=== PATIENT | male | born 1940 | race Caucasian/White ===

== ENCOUNTER 2020-06-02 17:33 | Inpatient (IN) | payer MEDICARE ==
[2020-06-02] MEDS ORDERED: ALBUTEROL HFA INHALER INHALATION PRN (17:57)
[2020-06-02] MEDS ORDERED: ACETAMINOPHEN TAB 500 MG TAB PO PRN (17:57)
[2020-06-02] MEDS ORDERED: ACETAMINOPHEN TAB 500 MG TAB PO STA (17:57)
[2020-06-02] MEDS ORDERED: ALBUTEROL HFA INHALER INHALATION STA (17:57)
--- NOTE | 2020-06-02 18:07 | ED ---
General Adult HPI - General Chief complaint: Shortness of Breath Stated complaint: COVID+ Time Seen by Provider: 06/02/20 17:54 Source: patient, RN notes reviewed Mode of arrival: ambulatory Limitations: no limitations - History of Present Illness Initial comments: Patient is a pleasant 79-year-old male presenting to emergency Department with cold but positive and difficulty in breathing. Patient has dementia and is a very poor historian. Patient does agree to having fatigue and myalgias and chills. Unclear how long symptoms have occurred 4. Patient is unclear of any history of chronic lung problems. - Related Data Home Medications Medication Instructions Recorded Confirmed Acetaminophen 650 mg RECTAL Q4H PRN 06/02/20 06/02/20 Maurice Antifungal Cream 2% 1 applic TOPICAL BID 06/02/20 06/02/20 Ferrous Sulfate [Iron] 325 mg PO BID@0800,199906/02/20 06/02/20 Metoprolol Tartrate [Lopressor] 50 mg PO BID@0800,199906/02/20 06/02/20 Omeprazole 20 mg PO DAILY@0800 06/02/20 06/02/20 Sertraline HCl [Zoloft] 50 mg PO DAILY@0800 06/02/20 06/02/20 Warfarin Sodium 3 mg PO MOWEFRSA@199906/02/20 06/02/20 Warfarin Sodium 4 mg PO SUTUTH@199906/02/20 06/02/20 bisacodyL [Bisacodyl] 10 mg RECTAL DAILY 06/02/20 06/02/20 Allergies Allergy/AdvReac Type Severity Reaction Status Date / Time No Known Allergies Allergy Verified 06/02/20 18:17 Review of Systems ROS Statement: Those systems with pertinent positive or pertinent negative responses have been documented in the HPI. ROS Other: All systems not noted in ROS Statement are negative. Constitutional: Reports: fever, chills Eyes: Denies: eye pain ENT: Denies: ear pain Respiratory: Reports: cough, dyspnea Cardiovascular: Denies: chest pain Endocrine: Denies: fatigue Gastrointestinal: Denies: abdominal pain Genitourinary: Denies: dysuria Musculoskeletal: Denies: back pain Skin: Denies: rash Neurological: Denies: weakness Past Medical History Past Medical History: Atrial Fibrillation Additional Past Medical History / Comment(s): elevated hr, amemia, bph, leukemia Past Surgical History: Unable to Obtain Past Psychological History: Depression General Exam Limitations: no limitations General appearance: alert, in no apparent distress Head exam: Present: normocephalic Eye exam: Present: normal appearance Neck exam: Present: normal inspection Respiratory exam: Present: decreased breath sounds Cardiovascular Exam: Present: tachycardia GI/Abdominal exam: Present: soft. Absent: tenderness Extremities exam: Present: normal inspection Neurological exam: Present: alert Psychiatric exam: Present: normal affect, normal mood Skin exam: Present: normal color Course Vital Signs 06/02/20 17:48 Temperature 99.6 F Pulse Rate 133 H Respiratory 18 Rate Blood Pressure 136/96 O2 Sat by Pulse 98 Oximetry EKG Findings - EKG Comments: EKG Findings:: plavix tachycardia with a rate of 136. qrs 96. qt 3:30. qtc 496. left axis. poor r-wave progression. incomplete right bundle-branch block. no acute st change. Medical Decision Making - Medical Decision Making Patient reevaluated. Case discussed with Dr. hill, covering for Dr. Birmingham, who admits for Dr. Baldwin. - Lab Data Result diagrams: 06/02/20 18:06 06/02/20 18:06 Lab Results 06/02/20 06/02/20 06/02/20 Range/Units 18:06 18:06 18:06 WBC 11.5 H (3.8-10.6) k/uL RBC 4.97 (4.30-5.90) m/uL Hgb 14.9 (13.0-17.5) gm/dL Hct 46.7 (39.0-53.0) % MCV 94.1 (80.0-100.0) fL MCH 30.1 (25.0-35.0) pg MCHC 32.0 (31.0-37.0) g/dL RDW 18.2 H (11.5-15.5) % Plt Count 131 L (150-450) k/uL MPV 7.1 Anisocytosis Slight PT 23.3 H (9.0-12.0) sec INR 2.4 H (<1.2) APTT 29.5 (22.0-30.0) sec Sodium 136 L (137-145) mmol/L Potassium 4.2 (3.5-5.1) mmol/L Chloride 105 (98-107) mmol/L Carbon Dioxide 23 (22-30) mmol/L Anion Gap 8 mmol/L BUN 17 (9-20) mg/dL Creatinine 0.78 (0.66-1.25) mg/dL Est GFR (CKD-EPI)AfAm >90 (>60 ml/min/1.73 sqM) Est GFR (CKD-EPI)NonAf 86 (>60 ml/min/1.73 sqM) Glucose 115 H (74-99) mg/dL Plasma Lactic Acid Tenzin (0.7-2.0) mmol/L Calcium 8.9 (8.4-10.2) mg/dL Magnesium 1.9 (1.6-2.3) mg/dL Total Bilirubin 0.7 (0.2-1.3) mg/dL AST 33 (17-59) U/L ALT 16 (4-49) U/L Alkaline Phosphatase 57 (38-126) U/L Lactate Dehydrogenase 509 (313-618) U/L C-Reactive Protein 21.1 H (<10.0) mg/L Total Protein 6.7 (6.3-8.2) g/dL Albumin 3.9 (3.5-5.0) g/dL 06/02/20 Range/Units 18:06 WBC (3.8-10.6) k/uL RBC (4.30-5.90) m/uL Hgb (13.0-17.5) gm/dL Hct (39.0-53.0) % MCV (80.0-100.0) fL MCH (25.0-35.0) pg MCHC (31.0-37.0) g/dL RDW (11.5-15.5) % Plt Count (150-450) k/uL MPV Anisocytosis PT (9.0-12.0) sec INR (<1.2) APTT (22.0-30.0) sec Sodium (137-145) mmol/L Potassium (3.5-5.1) mmol/L Chloride (98-107) mmol/L Carbon Dioxide (22-30) mmol/L Anion Gap mmol/L BUN (9-20) mg/dL Creatinine (0.66-1.25) mg/dL Est GFR (CKD-EPI)AfAm (>60 ml/min/1.73 sqM) Est GFR (CKD-EPI)NonAf (>60 ml/min/1.73 sqM) Glucose (74-99) mg/dL Plasma Lactic Acid Tenzin 1.3 (0.7-2.0) mmol/L Calcium (8.4-10.2) mg/dL Magnesium (1.6-2.3) mg/dL Total Bilirubin (0.2-1.3) mg/dL AST (17-59) U/L ALT (4-49) U/L Alkaline Phosphatase (38-126) U/L Lactate Dehydrogenase (313-618) U/L C-Reactive Protein (<10.0) mg/L Total Protein (6.3-8.2) g/dL Albumin (3.5-5.0) g/dL - Radiology Data Radiology results: image reviewed (Chest x-ray shows mild atelectasis and pleural reaction.) Disposition Clinical Impression: COVID-19, Tachycardia, Dyspnea Disposition: ADMITTED IP TO THIS HOSP Is patient prescribed a controlled substance at d/c from ED?: No Referrals: Terrence Baldwin DO [Primary Care Provider] - 1-2 days Decision Time: 18:37
--- NOTE | 2020-06-02 18:19 | XR ---
EXAMINATION TYPE: XR chest 1V portable DATE OF EXAM: 06/02/2020 COMPARISON: NONE HISTORY: Nausea and short of breath TECHNIQUE: Single view FINDINGS: There is some atelectasis at the lung bases. Heart is probably enlarged. There is coarsenin g of the interstitial markings. There is no heart failure. There is moderate arthritic change in the shoulder joints. IMPRESSION: Mild atelectasis and pleural reaction at the lung bases. No obvious heart failure.
[2020-06-02 18:29] LABS: ALT 16 U/L (4-49); AST 33 U/L (17-59); African American GFR (CKD) >90 (>60 ml/min/1.73 sqM); Albumin 3.9 g/dL (3.5-5.0); Alkaline Phosphatase 57 U/L (38-126); Anion Gap 8 mmol/L; Blood Urea Nitrogen 17 mg/dL (9-20); C Reactive Protein 21.1 mg/L (<10.0); Calcium 8.9 mg/dL (8.4-10.2); Carbon Dioxide 23 mmol/L (22-30); Chloride 105 mmol/L (98-107); Glucose 115 mg/dL (74-99); LDH 509 U/L (313-618); Magnesium 1.9 mg/dL (1.6-2.3); Non-African American GFR(CKD) 86 (>60 ml/min/1.73 sqM); Potassium 4.2 mmol/L (3.5-5.1); Sodium 136 mmol/L (137-145); Total Bilirubin 0.7 mg/dL (0.2-1.3); Total Protein 6.7 g/dL (6.3-8.2)
[2020-06-02 18:30] LABS: INR 2.4 (<1.2); Partial Thromboplastin Time 29.5 sec (22.0-30.0); Prothrombin Time 23.3 sec (9.0-12.0)
[2020-06-02] MEDS ORDERED: DILTIAZEM 125 MG in SODIUM CHLORIDE 0.9% 100 ML IV SCH (18:30)
[2020-06-02] MEDS ORDERED: NALOXONE 0.4 MG/ML 1 ML VIAL IV PRN (18:34)
[2020-06-02 18:51] LABS: Anisocytosis Slight; Basophils % (A) 0 %; Eosinophils # (A) 0.1 k/uL (0-0.7); Eosinophils % (A) 1 %; HCT 46.7 % (39.0-53.0); HGB 14.9 gm/dL (13.0-17.5); Lymphocytes # (A) 6.3 k/uL (1.0-4.8); Lymphocytes % (A) 55 %; MCH 30.1 pg (25.0-35.0); MCV 94.1 fL (80.0-100.0); Mean Platelet Volume 7.1; Monocytes # (A) 0.6 k/uL (0-1.0); Monocytes % (A) 6 %; Neutrophils # (A) 4.1 k/uL (1.3-7.7); Neutrophils % (A) 36 %; Platelet Count 131 k/uL (150-450); RBC 4.97 m/uL (4.30-5.90); RDW 18.2 % (11.5-15.5); WBC 11.5 k/uL (3.8-10.6)
[2020-06-02] MEDS: CHOLECALCIFEROL 1,000 UNIT TAB PO SCH (19:02)
[2020-06-02 19:50] LABS: Reactive Lymphocytes Present
[2020-06-02] MEDS: FAMOTIDINE 20 MG TAB PO SCH (23:50)
[2020-06-02] MEDS: dexAMETHasone 2 MG TAB PO SCH (23:50)
[2020-06-02] MEDS: ZINC SULFATE 220 MG CAP PO SCH (23:50)
[2020-06-02] MEDS: ASCORBIC ACID 500 MG TAB PO SCH (23:50)
[2020-06-03] MEDS: ALBUTEROL HFA INHALER INHALATION SCH ×4 (01:56→20:18)
[2020-06-03 04:29] LABS: Ferritin 66.6 ng/mL (22.0-322.0)
[2020-06-03] MEDS ORDERED: METOPROLOL TARTRATE 50 MG TAB PO SCH (08:00)
[2020-06-03] MEDS: METOPROLOL TARTRATE 25 MG TAB PO SCH ×2 (09:01→20:16)
[2020-06-03] MEDS: SERTRALINE 50 MG TAB PO SCH (09:02)
[2020-06-03] MEDS: FAMOTIDINE 20 MG TAB PO SCH ×2 (09:02→20:16)
[2020-06-03] MEDS: ASCORBIC ACID 500 MG TAB PO SCH ×2 (09:02→20:17)
[2020-06-03] MEDS: CHOLECALCIFEROL 1,000 UNIT TAB PO SCH (09:02)
[2020-06-03] MEDS: FERROUS SULFATE 325 MG TAB PO SCH ×2 (09:02→20:17)
[2020-06-03] MEDS: ZINC SULFATE 220 MG CAP PO SCH (09:02)
[2020-06-03] MEDS: dexAMETHasone 2 MG TAB PO SCH (09:02)
[2020-06-03 11:11] LABS: Anisocytosis Slight; Basophils % (A) 0 %; Eosinophils # (A) 0.1 k/uL (0-0.7); Eosinophils % (A) 1 %; HCT 43.8 % (39.0-53.0); Lymphocytes # (A) 4.6 k/uL (1.0-4.8); Lymphocytes % (A) 54 %; MCH 30.6 pg (25.0-35.0); MCV 95.5 fL (80.0-100.0); Monocytes # (A) 0.3 k/uL (0-1.0); Monocytes % (A) 3 %; Neutrophils # (A) 3.3 k/uL (1.3-7.7); Neutrophils % (A) 39 %; Platelet Count 116 k/uL (150-450); RBC 4.58 m/uL (4.30-5.90); RDW 17.9 % (11.5-15.5); WBC 8.5 k/uL (3.8-10.6)
[2020-06-03 11:32] LABS: INR 2.2 (<1.2)
[2020-06-03 11:37] LABS: African American GFR (CKD) >90 (>60 ml/min/1.73 sqM); Anion Gap 6 mmol/L; Blood Urea Nitrogen 14 mg/dL (9-20); Calcium 8.1 mg/dL (8.4-10.2); Carbon Dioxide 27 mmol/L (22-30); Chloride 103 mmol/L (98-107); Glucose 103 mg/dL (74-99); Non-African American GFR(CKD) 85 (>60 ml/min/1.73 sqM); Potassium 3.9 mmol/L (3.5-5.1); Sodium 136 mmol/L (137-145)
--- NOTE | 2020-06-03 12:06 | P.CRDCN ---
History of Present Illness Consult date: 06/03/20 History of present illness: CHIEF COMPLAINT: tachycardia HISTORY OF PRESENT ILLNESS: This is a 79-year old male with a past medical history significant for atrial fibrillation and dementia. Patient does follow with a cook [facility]. We have been asked to see the patient in consultation for tachycardia. Patient is a poor historian. He apparently was brought to the hospital secondary to shortness of breath. According to the ER notes the patient has recently tested positive for covid. Patient examined at the bedside. He denies shortness of breath. He denies chest pain or pressure. The patient does have a history of atrial fibrillation and is on Coumadin at home. The patient was tachycardia upon arrival. It appeared to be SVT. Repeat EKG shows atrial fibrillation. He was started on a cardizem drip. DIAGNOSTICS: EKG initially reveals SVT. Subsequent EKG reveals atrial fibrillation. No sig ns of acute ischemia Chest xray mild atelectasis and pleural reaction at the lung bases. No obvious heart failure Laboratory data: WBC 11.5. Hemoglobin 14.9. Platelet count 131. INR 2.4. Sodium 136. Potassium 4.2. BUN 17. Creatinine 0.78. BNP 2390 Current home cardiac medications include Coumadin and metoprolol 50 mg twice a day REVIEW OF SYSTEMS: At the time of my exam: CONSTITUTIONAL: Denies fever or chills. HEENT: Denies blurred vision, vision changes, or eye pain. Denies hemoptysis CARDIOVASCULAR: Denies chest pain, orthopnea, PND or palpitations RESPIRATORY: No shortness of breath. GASTROINTESTINAL: Denies abdominal pain. Denies nausea or vomiting. HEMATOLOGIC: Denies bleeding disorders. GENITOURINARY: Denies any blood in urine. SKIN: Denies pruitis. Denies rash. PHYSICAL EXAM: VITAL SIGNS: Reviewed. GENERAL: Well-developed in no acute distress. HEENT: Head is normocephalic. Pupils are equal, round. Sclerae anicteric. Mucous membranes of the mouth are moist. Neck supple. No JVD or thyromegaly LUNGS: Respirations even and unlabored. Lungs diminished. HEART: Tachycardic. Irregular rate and rhythm. S1 and S2 heard. ABDOMEN: Soft. Nondistended. Nontender. EXTREMITIES: Normal range of motion. No clubbing or cyanosis. Peripheral pulses intact. No lower extremity edema NEUROLOGIC: Awake and alert. Oriented x 3. ASSESSMENT: Acute Covid 19 Paroxysmal atrial fibrillation, on long-term intake anticoagulation with Coumadin Dementia PLAN: Obtain 2-D echo to assess cardiac structure and function Resume metoprolol. Increase dose to 75 mg twice a day Discontinue Cardizem drip Continue Coumadin for anticoagulation Further recommendations pending patient's course Nurse practitioner note has been reviewed by physician. Signing provider agrees with the documented findings, assessment, and plan of care. Past Medical History Past Medical History: Atrial Fibrillation Additional Past Medical History / Comment(s): elevated hr, amemia, bph, leukemia History of Any Multi-Drug Resistant Organisms: None Reported Past Surgical History: Unable to Obtain Past Psychological History: Depression Smoking Status: Never smoker Medications and Allergies Home Medications Medication Instructions Recorded Confirmed Type Acetaminophen 650 mg RECTAL Q4H PRN 06/02/20 06/02/20 History Maurice Antifungal Cream 2% 1 applic TOPICAL BID 06/02/20 06/02/20 History Ferrous Sulfate [Iron] 325 mg PO BID@0800,199906/02/20 06/02/20 History Metoprolol Tartrate [Lopressor] 50 mg PO BID@0800,199906/02/20 06/02/20 History Omeprazole 20 mg PO DAILY@0800 06/02/20 06/02/20 History Sertraline HCl [Zoloft] 50 mg PO DAILY@0800 06/02/20 06/02/20 History Warfarin Sodium 3 mg PO MOWEFRSA@199906/02/20 06/02/20 History Warfarin Sodium 4 mg PO SUTUTH@199906/02/20 06/02/20 History bisacodyL [Bisacodyl] 10 mg RECTAL DAILY 06/02/20 06/02/20 History Allergies Allergy/AdvReac Type Severity Reaction Status Date / Time No Known Allergies Allergy Verified 06/02/20 18:17 Physical Exam Vitals: Vital Signs Temp Pulse Pulse Resp BP BP Pulse Ox 06/03/20 08:00 98.2 F 95 18 123/92 95 06/03/20 04:00 98.8 F 100 20 132/75 94 L 06/03/20 00:00 105 H 18 06/02/20 22:15 98.4 F 117 H 18 120/91 98 06/02/20 20:06 98.9 F 105 H 20 126/74 94 L 06/02/20 19:50 98.5 F 89 16 119/88 98 06/02/20 19:08 134 H 18 129/94 98 06/02/20 17:48 99.6 F 133 H 18 136/96 98 Intake and Output 06/02/20 06/03/20 06/03/20 22:59 06:59 14:59 Intake Total 240 Output Total 325 300 Balance -325 -60 Intake: Oral 240 Output: Urine 325 300 Other: Voiding Method Urinal Incontinent Weight 86.183 kg 74 kg Results 06/03/20 10:51 06/03/20 10:51 Cardiac Enzymes 06/02/20 Range/Units 18:06 AST 33 (17-59) U/L Lactate Dehydrogenase 509 (313-618) U/L Coagulation 06/02/20 Range/Units 18:06 PT 23.3 H (9.0-12.0) sec APTT 29.5 (22.0-30.0) sec CBC 06/02/20 Range/Units 18:06 WBC 11.5 H (3.8-10.6) k/uL RBC 4.97 (4.30-5.90) m/uL Hgb 14.9 (13.0-17.5) gm/dL Hct 46.7 (39.0-53.0) % Plt Count 131 L (150-450) k/uL Comprehensive Metabolic Panel 06/02/20 Range/Units 18:06 Sodium 136 L (137-145) mmol/L Potassium 4.2 (3.5-5.1) mmol/L Chloride 105 (98-107) mmol/L Carbon Dioxide 23 (22-30) mmol/L BUN 17 (9-20) mg/dL Creatinine 0.78 (0.66-1.25) mg/dL Glucose 115 H (74-99) mg/dL Calcium 8.9 (8.4-10.2) mg/dL AST 33 (17-59) U/L ALT 16 (4-49) U/L Alkaline Phosphatase 57 (38-126) U/L Total Protein 6.7 (6.3-8.2) g/dL Albumin 3.9 (3.5-5.0) g/dL Current Medications Generic Name Dose Route Start Last Admin Trade Name Freq PRN Reason Stop Dose Admin Acetaminophen 1,000 mg 06/02/20 17:57 Acetaminophen Tab 500 Mg Tab PO Q6HR PRN Fever>101 Albuterol Sulfate 2 puff 06/03/20 02:00 06/03/20 08:43 Albuterol Hfa Inhaler INHALATION 2 puff RT-Q6H MARIA GUADALUPE Administration Albuterol Sulfate 2 puff 06/02/20 17:57 Albuterol Hfa Inhaler INHALATION RT-Q6H PRN Shortness Of Breath Or Wheezing Ascorbic Acid 500 mg 06/02/20 21:00 06/03/20 09:02 Ascorbic Acid 500 Mg Tab PO 500 mg BID MARIA GUADALUPE Administration Cholecalciferol 5,000 unit 06/02/20 18:45 06/03/20 09:02 Cholecalciferol 1,000 Unit Tab PO 5,000 unit DAILY MARIA GUADALUPE Administration Dexamethasone 6 mg 06/02/20 18:45 06/03/20 09:02 Dexamethasone 2 Mg Tab PO 6 mg DAILY MARIA GUADALUPE Administration Famotidine 20 mg 06/02/20 21:00 06/03/20 09:02 Famotidine 20 Mg Tab PO 20 mg BID [facility] Administration Ferrous Sulfate 325 mg 06/03/20 08:00 06/03/20 09:02 Ferrous Sulfate 325 Mg Tab PO 325 mg BID@ [facility] Administration Metoprolol Tartrate 75 mg 06/03/20 09:00 06/03/20 09:01 Metoprolol Tartrate 25 Mg Tab PO 75 mg BID@08 [facility] Administration Miscellaneous Information 0 each 06/02/20 20:28 Warfarin Per Pharmacy MISCELLANE DIRECTED PRN PHARMACY DOSING WARFARIN Naloxone HCl 0.2 mg 06/02/20 18:34 Naloxone 0.4 Mg/Ml 1 Ml Vial IV Q2M PRN Opioid Reversal Sertraline HCl 50 mg 06/03/20 08:00 06/03/20 09:02 Sertraline 50 Mg Tab PO 50 mg DAILY@0800 [facility] Administration Warfarin Sodium 4 mg 06/04/20 20:00 Warfarin 2 Mg Tab PO SUTUTH@1999 [facility] Protocol Warfarin Sodium 3 mg 06/03/20 20:00 Warfarin 3 Mg Tab PO MOWEFRSA@1999 [facility] Protocol Zinc Sulfate 220 mg 06/02/20 18:45 06/03/20 09:02 Zinc Sulfate 220 Mg Cap PO 220 mg DAILY [facility] Administration Intake and Output 1106/03/20 06/03/20 22:59 06:59 14:59 Intake Total 240 Output Total 325 300 Balance -325 -60 Intake: Oral 240 Output: Urine 325 300 Other: Voiding Method Urinal Incontinent Weight 86.183 kg 74 kg 06/02/20 18:06 06/02/20 18:06
[2020-06-03] MEDS ORDERED: METOPROLOL TARTRATE 25 MG TAB PO STA (12:48)
--- NOTE | 2020-06-03 13:55 | ECHOF ---
Referral Reason:afib, LV function MEASUREMENTS -------- HEIGHT: 175.3 cm WEIGHT: 73.9 kg BP: 123/92 IVSd: 1.2 cm (0.6 - 1.1) LVIDd: 4.1 cm (3.9 - 5.3) LVPWd: 1.2 cm (0.6 - 1.1) EDV(Teich): 73 ml IVSs: 1.7 cm LVIDs: 2.9 cm LVPWs: 1.7 cm %IVS Thck: 40 % ESV(Teich): 31 ml EF(Teich): 57 % %FS: 30 % SV(Teich): 42 ml LA Diam: 3.5 cm (2.7 - 3.8) RVIDd: 2.7 cm (< 3.3) IVC: 25.99 mm Ao Diam: 3.8 cm (2.0 - 3.7) AV Cusp: 1.8 cm (1.5 - 2.6) EPSS: 1.2 cm MV DecT: 134 ms MV PHT: 38 ms MVA By PHT: 5.7 cm AV Vmax: 1.24 m/s AV maxP.14 mmHg TR Vmax: 2.69 m/s TR maxP.03 mmHg RAP: 15.00 mmHg RVSP: 44.03 mmHg MV EF SLOPE: 106.80 mm/s (70 - 150) MV EXCURSION: 12.69 mm (> 18.000) FINDINGS -------- Atrial fibrillation. This was a technically adequate study. The left ventricular size is normal. There is borderline concentric left ventricular hypertrophy. Overall left ventricular systolic function is severely impaired with, an EF between 25 - 30 %. The right ventricle is normal in size. The left atrial size is normal. The right atrium is normal in size. Interatrial and interventricular septum intact. There is mild aortic valve sclerosis. There is mild aortic regurgitation. The mitral valve leaflets are mildly thickened. Mild mitral annular calcification present. Mild m itral regurgitation is present. Mild tricuspid regurgitation present. There is mild pulmonary hypertension. The right ventricular systolic pressure, as measured by Doppler, is 44.03mmHg. Trace/mild (physiologic) pulmonic regurgitation. The aortic root is dilated measuring 3.8cm. The inferior vena cava is dilated with no significant inspiratory collapse which is consistent estima lina right atrial pressure of >15 mmHg. There is no pericardial effusion. CONCLUSIONS -------- 1. The left ventricular size is normal. 2. There is borderline concentric left ventricular hypertrophy. 3. Overall left ventricular systolic function is severely impaired with, an EF between 25 - 30 %. 4. There is mild aortic valve sclerosis. 5. There is mild aortic regurgitation. 6. The mitral valve leaflets are mildly thickened. 7. Mild mitral annular calcification present. 8. Mild mitral regurgitation is present. 9. Mild tricuspid regurgitation present. 10. There is mild pulmonary hypertension. 11. The right ventricular systolic pressure, as measured by Doppler, is 44.03mmHg. 12. Trace/mild (physiologic) pulmonic regurgitation. 13. The aortic root is dilated measuring 3.8cm. 14. The inferior vena cava is dilated with no significant inspiratory collapse which is consistent es timated right atrial pressure of >15 mmHg. 15. There is no pericardial effusion. [employer]: Karolina Martin RDCS
[2020-06-03] MEDS ORDERED: HYDROcodone/APAP 5-325MG 1 EACH TAB PO PRN (14:04)
[2020-06-03] MEDS ORDERED: ALPRAZolam 0.25 MG TAB PO PRN (14:04)
--- NOTE | 2020-06-03 15:07 | CT ---
EXAMINATION TYPE: CT chest wo con DATE OF EXAM: 06/03/2020 COMPARISON: Chest x-ray from yesterday HISTORY: Shortness of breath. Covid [address] DLP: 530.3 mGycm. Automated Exposure Control for Dose Reduction was Utilized. TECHNIQUE: CT scan of the thorax is performed without IV contrast. FINDINGS: LUNGS: Exam suboptimal inspiration unable to hold breath. This limits evaluation particularly for sub centimeter nodules. There is tiny left greater than right pleural effusion in the bases. There is mil d/moderate left greater than right bibasilar linear scarring and/or atelectasis extending to the ante rior mid lungs. No pneumothorax seen bilaterally. MEDIASTINUM: Lack of IV contrast is noted to limit evaluation for mediastinal and especially hilar ad enopathy. There are prominent borderline Enlarged thoracic lymph nodes throughout the mediastinum . For reference there is 1.4 x 1.2 cm right paratracheal lymph node axial image 15. No significant pericardial effusion is seen. Cardiomegaly is noted. There is coronary artery calcification and/or stent. Calcification at level of aortic valve. OTHER: Cholecystectomy clips. S-shaped scoliosis. Advanced degenerative change bilateral glenohumeral joints. IMPRESSION: Suboptimal study. Cardiomegaly without suspicious acute pulmonary process or infiltrate. Tiny left greater than right pleural effusions. Patchy left greater than right atelectatic change. Ab normal thoracic lymph nodes. Consider follow-up study based on clinical correlation.
--- NOTE | 2020-06-03 16:10 | HP ---
HISTORY AND PHYSICAL CHIEF COMPLAINTS: Shortness of breath. HISTORY OF PRESENT ILLNESS: This is an 79-year-old gentleman with a past medical history of multiple medical issues, including atrial fibrillation, history of elevated heart rate, history of anemia, history of BPH, history of leukemia, being followed by Dr. Baldwin in the outpatient setting, was complaining of some shortness of breath. The patient was apparently recently tested for possible COVID-19. The patient was found to be tachycardic and the patient came to [facility] for evaluation and the patient has some dementia. The patient unable to give a coherent history, most history may be taken by my discussion with staff and review of the chart at this time. The patient was found to have significant cardiomyopathy, ejection fraction about 25% to 30%. Cardiology evaluation in progress also. The patient has paroxysmal atrial fibrillation also. The EKG which was reviewed personally by me showed possible atrial fibrillation. There is no history of trauma. PAST MEDICAL HISTORY: History of dementia, history atrial fibrillation, history of elevated heart rate, leukemia, history of depression. MEDICATIONS: Prior to admission, home medications are: 1. Bisocordal. 2. Acetaminophen. 3. Maurice antifungal cream. 4. Coumadin. 5. Zoloft. 6. Omeprazole. 7. Lopressor. 8. Iron. ALLERGIES: None. FAMILY HISTORY, SOCIAL HISTORY, REVIEW OF SYSTEMS: Could not be taken because of the dementia. PHYSICAL EXAM: Patient is conscious, confused. Pulse is 100, blood pressure 123/70, respiration 18, temperature 98.2, pulse ox 96% on 2 L. HEENT: Conjunctivae normal. NECK: No jugular venous distension. CARDIOVASCULAR SYSTEM: S1, S2, muffled. RESPIRATION: Breath sounds diminished at the bases, a few scattered rhonchi. No crackles. ABDOMEN: Soft, nontender. No mass palpable. LEGS: no edema no swelling nervous system as mentioned earlier. Moves all 4 limbs no focal motor or sensory deficits. LYMPHATICS: No lymph nodes palpable in the neck, axillae or groin. JOINTS: No active deforming arthropathy. LABS: WBC 11.5, sodium platelets 131. INR is 2.4. Sodium is 136 glucose 115 the CRP 21.1. 1. Atrial fibrillation with fast ventricular rate. 2. Paroxysmal atrial fibrillation. 3. Coumadin 19, rule out pneumonia. 4. Increased WBC. 5. Thrombocytopenia mild. 6. Hyponatremia. 7. Increased random blood sugar. 8. Increased elevated CRP. 9. History of paroxysmal atrial fibrillation. 10.Anemia next history of BPH history leukemia next history of depression, history of dementia. 11.NO CODE, NO CPR, NO VENT. RECOMMENDATIONS AND DISCUSSION: This 79-year-old gentleman who presented with multiple complex medical issues, at this time I recommend to continue current medication, continue symptomatic treatment. Otherwise, recommend a CT scan of the chest to rule out any significant pneumonia, inflammatory markers are negative at this time. Infectious disease evaluation. Continue dexamethasone. Monitor blood sugars closely. Otherwise, the patient is already on Coumadin and I would recommend to have INR is 2.2. We will continue to monitor. Cardiology evaluation appreciated. Patient possibly also had cardiomyopathy as well. Once again, the prognosis guarded because of multiple complex medical issues. Further recommendations to follow. Please send a copy to my office. ROWENA / IJN: [id number] /
[2020-06-03] MEDS ORDERED: WARFARIN 3 MG TAB PO SCH (20:00)
[2020-06-03] MEDS: CLOTRIMAZOLE 1% CREAM 15 GM TUBE TOPICAL SCH (23:51)
[2020-06-04] MEDS: ALBUTEROL HFA INHALER INHALATION SCH ×4 (03:08→19:02)
--- NOTE | 2020-06-04 07:13 | CONS ---
CONSULTATION DATE OF SERVICE: 06/03/2020 REASON FOR CONSULTATION: COVID-19 infection. HISTORY OF PRESENT ILLNESS: The patient is an 79-year-old male who has been sent to [facility] ER after apparently the patient was noticed to be COVID-19 positive and the patient was complaining of difficulty in breathing and also complaining of some fatigue, myalgia, and chills. The patient subsequently has been referred to [facility] for further evaluation. On presentation to hospital, the patient did have a low-grade fever of 99.6. The patient did not have significant hypoxemia and he has been saturating between 98 and 96% on room air. He was slightly tachycardic and noticed to be in atrial fibrillation with RVR. The patient did have elevated white count on admission of 11.5, and did not have any lymphopenia. The patient's kidney function was normal. Liver enzymes were normal. CRP 21.1. The procalcitonin was 0.05. Blood culture so far negative. The patient did have a chest x-ray, mild atelectasis and pleural effusion of the lung bases. No obvious heart failure. The patient also had a CT of the chest which shows cardiomegaly with no suspicious acute pulmonary process or infiltrate. Infectious Disease was consulted for further management and concern for underlying COVID-19 infection. The patient himself is not a very good historian so most of the information has been obtained from the chart and talking to nursing staff. REVIEW OF SYSTEMS: Positive points have been mentioned in HPI. Rest of systems negative. PAST MEDICAL HISTORY: Atrial fibrillation, BPH, and leukemia. PAST SURGICAL HISTORY: No major surgery. SOCIAL HISTORY: No history of smoking, drinking or drug use. FAMILY HISTORY: No pertinent findings noted. ALLERGIES: No known drug allergies. MEDICATIONS: The patient is currently on Tylenol, [place], Ventolin, Xanax, vitamin C, Dulcolax, dexamethasone, Lopressor, Coumadin, Zoloft, zinc sulfate. PHYSICAL EXAMINATION: VITAL SIGNS: Blood pressure 132/66, pulse of 127, temperature is 98.2, T-max is 99.6. He is 96% on room air. GENERAL DESCRIPTION: He is an elderly male lying in bed in no distress. No tachypnea or accessory muscles of respiration use. HEENT: Examination shows no pallor or scleral icterus. Oral mucous membranes are dry. NECK: Trachea central. No thyromegaly. LUNGS: Unlabored breathing, decreased breath sounds in the base, with no wheeze or crackle. HEART: S1, S2. Irregular rhythm. ABDOMEN: Soft, no tenderness. No rigidity. EXTREMITIES: No edema of the feet. SKIN: No rash or mass palpable. NEUROLOGICAL: Patient is awake, alert, oriented x1. Mood and affect normal. LABS: Hemoglobin is 14.3, white count 8.5, 11.5, INR is 2.2, BUN of 14, creatinine 0.80. Liver enzymes are normal. CRP is only 21.1. Procalcitonin normal. IMAGING: CT chest did not show any acute infiltrate. DIAGNOSTIC IMPRESSION: Patient admitted to the hospital with increasing shortness of breath, could be more likely due to atrial fibrillation with RVR even though the patient did have positive COVID testing. However, the inflammatory markers are not significantly elevated and the patient CT chest did not show ground-glass opacity with pneumonia for the acute COVID-19 infection. PLAN: 1. Patient to continue with dexamethasone, zinc and Coumadin. 2. No need for remdesivir therapy at this point. 3. respiratory support. 4. We will follow on his clinical condition and further adjust medication if needed. Thank you for this consultation. Will follow this patient along with you. MMODL / IJN: [id number] /
[2020-06-04] MEDS: FAMOTIDINE 20 MG TAB PO SCH ×2 (10:00→21:44)
[2020-06-04] MEDS: METOPROLOL TARTRATE 50 MG TAB PO SCH ×2 (10:00→21:44)
[2020-06-04] MEDS: CHOLECALCIFEROL 1,000 UNIT TAB PO SCH (10:00)
[2020-06-04] MEDS: SERTRALINE 50 MG TAB PO SCH (10:01)
[2020-06-04] MEDS: bisacodyL 10 MG SUPP RECTAL SCH (10:01)
[2020-06-04] MEDS: FERROUS SULFATE 325 MG TAB PO SCH ×2 (10:01→21:44)
[2020-06-04] MEDS: ASCORBIC ACID 500 MG TAB PO SCH ×2 (10:01→21:44)
[2020-06-04] MEDS: dexAMETHasone 2 MG TAB PO SCH (10:01)
[2020-06-04] MEDS: ZINC SULFATE 220 MG CAP PO SCH (10:02)
[2020-06-04 10:49] LABS: Anisocytosis Slight; HCT 46.4 % (39.0-53.0); HGB 15.5 gm/dL (13.0-17.5); MCH 31.7 pg (25.0-35.0); MCHC 33.5 g/dL (31.0-37.0); MCV 94.7 fL (80.0-100.0); Mean Platelet Volume 7.2; Platelet Count 141 k/uL (150-450); RDW 17.4 % (11.5-15.5); WBC 13.2 k/uL (3.8-10.6)
[2020-06-04 10:56] LABS: African American GFR (CKD) >90 (>60 ml/min/1.73 sqM); Anion Gap 7 mmol/L; Blood Urea Nitrogen 21 mg/dL (9-20); Calcium 9.1 mg/dL (8.4-10.2); Carbon Dioxide 27 mmol/L (22-30); Chloride 104 mmol/L (98-107); Glucose 93 mg/dL (74-99); Non-African American GFR(CKD) 83 (>60 ml/min/1.73 sqM); Potassium 4.5 mmol/L (3.5-5.1); Sodium 138 mmol/L (137-145)
[2020-06-04 10:57] LABS: INR 1.7 (<1.2); Prothrombin Time 16.4 sec (9.0-12.0)
--- NOTE | 2020-06-04 13:17 | P.PN ---
Subjective Progress Note Date: 06/04/20 CHIEF COMPLAINT: tachycardia HISTORY OF PRESENT ILLNESS: 06/03/2020 This is a 79-year old male with a past medical history significant for atrial fibrillation and dementia. Patient does follow with a teletypesetter operator. We have been asked to see the patient in consultation for tachycardia. Patient is a poor historian. He apparently was brought to the hospital secondary to shortness of breath. According to the ER notes the patient has recently tested positive for covid. Patient examined at the bedside. He denies shortness of breath. He denies chest pain or pressure. The patient does have a history of atrial fibrillation and is on Coumadin at home. The patient was tachycardia upon arrival. It appeared to be SVT. Repeat EKG shows atrial fibrillation. He was started on a cardizem drip. 06/04/2020 Patient examined this morning at the bedside. He denies chest pain or pressure. Denies shortness of breath. Metoprolol has been increased to 100 mg twice a day. His heart rate is currently controlled. Blood pressure stable. Echocardiogram reveals ejection fraction 25-30%, mild aortic regurgitation, mild mitral regurgitation, mild tricuspid regurgitation, and mild pulmonary hypertension PHYSICAL EXAM: VITAL SIGNS: Reviewed. GENERAL: Well-developed in no acute distress. HEENT: Head is normocephalic. Pupils are equal, round. Sclerae anicteric. Mucous membranes of the mouth are moist. Neck supple. No JVD or thyromegaly LUNGS: Respirations even and unlabored. Lungs diminished. HEART: Irregular rate and rhythm. S1 and S2 heard. ABDOMEN: Soft. Nondistended. Nontender. EXTREMITIES: Normal range of motion. No clubbing or cyanosis. Peripheral pulses intact. No lower extremity edema NEUROLOGIC: Awake and alert. Oriented x 3. ASSESSMENT: Acute Covid 19 Paroxysmal atrial fibrillation, on long-term anticoagulation with Coumadin Dementia Cardiomyopathy, EF 25-30% PLAN: Continue metoprolol 100 mg twice a day Continue Coumadin for anticoagulation Further recommendations pending patient's course Nurse practitioner note has been reviewed by physician. Signing provider agrees with the documented findings, assessment, and plan of care. Objective - Vital Signs Vital signs: Vital Signs Temp 98.4 F 06/04/20 12:00 Pulse 77 06/04/20 12:00 Resp 17 06/04/20 12:00 BP 111/67 06/04/20 12:00 Pulse Ox 96 06/04/20 12:00 Intake & Output 06/03/20 06/04/20 06/04/20 18:59 06:59 18:59 Intake Total 702 240 Output Total 550 Balance 152 240 Weight 95.5 kg Intake: Oral 702 240 Output: Urine 550 Other: Voiding Method Urinal Incontinent # Voids 2 - Labs CBC & Chem 7: 06/04/20 09:07 06/04/20 09:07 Labs: Abnormal Lab Results - Last 24 Hours (Table) 06/04/20 06/04/20 06/04/20 Range/Units 09:07 09:07 09:07 WBC 13.2 H (3.8-10.6) k/uL RDW 17.4 H (11.5-15.5) % Plt Count 141 L (150-450) k/uL PT 16.4 H (9.0-12.0) sec INR 1.7 H (<1.2) BUN 21 H (9-20) mg/dL Microbiology - Last 24 Hours (Table) 06/02/20 18:06 Blood Culture - Preliminary Blood No Growth after 24 hours
[2020-06-04 14:04] LABS: Anisocytosis (M) Present; Lymphocytes # (M) 8.71 k/uL (1.0-4.8); Monocytes # (M) 1.06 k/uL (0-1.0); Neutrophils # (M) 3.43 k/uL (1.3-7.7); Neutrophils % (M) 26 %; Nucleated Red Blood Cells 0 /100 WBC (0-0); Total Cells Counted 100
[2020-06-04] MEDS: CLOTRIMAZOLE 1% CREAM 15 GM TUBE TOPICAL SCH ×2 (16:45→21:44)
[2020-06-04] MEDS ORDERED: WARFARIN 2 MG TAB PO SCH (20:00)
[2020-06-04] MEDS ORDERED: WARFARIN 5 MG TAB PO ONE (20:00)
--- NOTE | 2020-06-04 23:08 | PN ---
PROGRESS NOTE DATE OF SERVICE: 06/04/2020 This 79-year-old gentleman who was admitted with shortness of breath also had atrial fibrillation with fast ventricular rate. The patient also had a COVID-19. A CT scan of the chest which was personally reviewed by me showed possibly some pneumonic changes in the basal area also. The patient will be closely monitored. Inflammatory markers are not that elevated at this time. PAST MEDICAL HISTORY: Reviewed. REVIEW OF SYSTEMS: CARDIOVASCULAR SYSTEM: No angina. RESPIRATORY SYSTEM: As mentioned earlier. GI: As mentioned earlier. : No dysuria. NERVOUS SYSTEM: No numbness, weakness. CURRENT MEDICATIONS: Current medications are reviewed and include: Tylenol, [place], Ventolin, Xanax, Vitamin C, Lopressor, Narcan, Coumadin, Orazinc. PHYSICAL EXAMINATION: The patient is alert and oriented x1. Patient is confused. Otherwise, pulse 67, blood pressure 118/78, respiration 14, temperature 98.4, pulse ox 93% on room air. HEENT: Conjunctivae normal. NECK: No jugular venous distention. CARDIOVASCULAR: S1, S2 muffled. RESPIRATORY: Breath sounds diminished at the bases. A few scattered rhonchi and crackles. ABDOMEN: Soft, nontender. LEGS: No edema. No swelling. NERVOUS SYSTEM: No focal deficit. LABS: WBC 13.2 and INR is 1.7. ASSESSMENT: 1. Acute COVID-19 infection with possibly early bilateral pneumonia in the bases. 2. Atrial fibrillation with fast ventricular rate. 3. Paroxysmal atrial fibrillation. 4. Increased WBC. 5. Thrombocytopenia, mild. 6. Hyponatremia. 7. Increased random blood sugar. 8. Elevated CRP. 9. Anemia. 10.History of benign prostatic hypertrophy. 11.History of leukemia. 12.History of depression. 13.History of dementia. 14.NO CODE NO CPR, NO VENT. RECOMMENDATIONS AND DISCUSSION: Recommend to continue current medications. Continue to monitor, symptomatic treatment. Otherwise, continue with conservative line of management at this time. No indication of remdesivir per Dr. Guerrier. I would also recommend repeat of the CRP and check D-dimer also. Guarded prognosis because of multiple complex medical issues. Further recommendations to follow. MMODL / IJN: [id number] / MTDMyrtle
[2020-06-05] MEDS: ALBUTEROL HFA INHALER INHALATION SCH ×4 (04:03→21:07)
--- NOTE | 2020-06-05 06:24 | PN ---
PROGRESS NOTE DATE OF SERVICE: 06/04/2020 REASON FOR FOLLOWUP: COVID-19 infection. INTERVAL HISTORY: The patient is currently afebrile. The patient is breathing comfortably. Patient denies having any chest pain or shortness of breath or cough. No abdominal pain or diarrhea. PHYSICAL EXAMINATION: Blood pressure 132/92 with a pulse of 126, temperature 97.5. He is 96% on room air. General description is an elderly male lying in bed in no distress. RESPIRATORY SYSTEM: Unlabored breathing, decreased breath sounds at bases. No wheeze. HEART: S1, S2. Regular rate and rhythm. Abdomen: Soft, no tenderness. EXTREMITIES: Some trace edema of feet. LABS: Hemoglobin is 15.5, white count 13.2, no lymphopenia. BUN of 21, creatinine 0.83. DIAGNOSTIC IMPRESSION AND PLAN: Patient with shortness of breath which is mild, likely multifactorial, possible related to atrial fibrillation with rapid ventricular response, fluid overload in this patient with no significant inflammatory marker and not hypoxic. The patient at this time to continue with dexamethasone, Coumadin and zinc sulfate and monitor his clinical course closely. MMODL / IJN: [id number] /
[2020-06-05] MEDS: FERROUS SULFATE 325 MG TAB PO SCH ×2 (09:36→20:06)
[2020-06-05] MEDS: FAMOTIDINE 20 MG TAB PO SCH ×2 (09:36→20:07)
[2020-06-05] MEDS: hydrALAZINE HCL 10 MG TAB PO SCH ×2 (09:36→20:06)
[2020-06-05] MEDS: CHOLECALCIFEROL 1,000 UNIT TAB PO SCH (09:36)
[2020-06-05] MEDS: dexAMETHasone 2 MG TAB PO SCH (09:36)
[2020-06-05] MEDS: ASCORBIC ACID 500 MG TAB PO SCH ×2 (09:36→20:07)
[2020-06-05] MEDS: ZINC SULFATE 220 MG CAP PO SCH (09:36)
[2020-06-05] MEDS: METOPROLOL TARTRATE 50 MG TAB PO SCH ×2 (09:37→20:06)
[2020-06-05] MEDS: bisacodyL 10 MG SUPP RECTAL SCH (09:37)
[2020-06-05] MEDS: ISOSORBIDE MONONITRATE ER 30 MG TAB.ER.24H PO SCH (09:37)
[2020-06-05] MEDS: CLOTRIMAZOLE 1% CREAM 15 GM TUBE TOPICAL SCH ×2 (09:37→20:11)
[2020-06-05] MEDS: SERTRALINE 50 MG TAB PO SCH (09:37)
[2020-06-05 14:28] LABS: Anisocytosis Slight; HCT 44.3 % (39.0-53.0); HGB 14.9 gm/dL (13.0-17.5); MCH 31.4 pg (25.0-35.0); MCHC 33.6 g/dL (31.0-37.0); MCV 93.5 fL (80.0-100.0); Mean Platelet Volume 7.3; Platelet Count 138 k/uL (150-450); RBC 4.74 m/uL (4.30-5.90); RDW 17.4 % (11.5-15.5)
--- NOTE | 2020-06-05 14:29 | P.PN ---
Subjective Progress Note Date: 06/05/20 CHIEF COMPLAINT: tachycardia HISTORY OF PRESENT ILLNESS: 06/03/2020 This is a 79-year old male with a past medical history significant for atrial fibrillation and dementia. Patient does follow with a virtual office assistant. We have been asked to see the patient in consultation for tachycardia. Patient is a poor historian. He apparently was brought to the hospital secondary to shortness of breath. According to the ER notes the patient has recently tested positive for covid. Patient examined at the bedside. He denies shortness of breath. He denies chest pain or pressure. The patient does have a history of atrial fibrillation and is on Coumadin at home. The patient was tachycardia upon arrival. It appeared to be SVT. Repeat EKG shows atrial fibrillation. He was started on a cardizem drip. 06/04/2020 Patient examined this morning at the bedside. He denies chest pain or pressure. Denies shortness of breath. Metoprolol has been increased to 100 mg twice a day. His heart rate is currently controlled. Blood pressure stable. Echocardiogram reveals ejection fraction 25-30%, mild aortic regurgitation, mild mitral regurgitation, mild tricuspid regurgitation, and mild pulmonary hypertension 06/05/2020 Patient examined at the bedside. He denies chest pain or pressure. Denies shortness of breath. Patient's heart rate remains controlled. PHYSICAL EXAM: VITAL SIGNS: Reviewed. GENERAL: Well-developed in no acute distress. HEENT: Head is normocephalic. Pupils are equal, round. Sclerae anicteric. Mucous membranes of the mouth are moist. Neck supple. No JVD or thyromegaly LUNGS: Respirations even and unlabored. Lungs diminished. HEART: Irregular rate and rhythm. S1 and S2 heard. ABDOMEN: Soft. Nondistended. Nontender. EXTREMITIES: Normal range of motion. No clubbing or cyanosis. Peripheral pulses intact. No lower extremity edema NEUROLOGIC: Awake and alert. Oriented x 3. ASSESSMENT: Acute Covid 19 Paroxysmal atrial fibrillation, on long-term anticoagulation with Coumadin Dementia Cardiomyopathy, EF 25-30% PLAN: Continue current cardiac medications Continue Coumadin for anticoagulation Patient is stable from a cardiac perspective We will follow on an as-needed basis. Please call with questions or concerns Nurse practitioner note has been reviewed by physician. Signing provider agrees with the documented findings, assessment, and plan of care. Objective - Vital Signs Vital signs: Vital Signs Temp 97.9 F 06/05/20 08:20 Pulse 70 06/05/20 12:00 Resp 17 06/05/20 12:00 BP 95/62 06/05/20 12:00 Pulse Ox 96 06/05/20 12:00 Intake & Output 06/04/20 06/05/20 06/05/20 18:59 06:59 18:59 Intake Total 360 480 Output Total 1 Balance 360 479 Weight 70 kg Intake: Oral 360 480 Output: Stool 1 Other: Voiding Method Urinal Incontinent Incontinent # Voids 2 1 1 - Labs CBC & Chem 7: 06/04/20 09:07 06/04/20 09:07 Labs: Microbiology - Last 24 Hours (Table) 06/02/20 18:06 Blood Culture - Preliminary Blood No Growth after 48 hours
[2020-06-05 14:47] LABS: African American GFR (CKD) >90 (>60 ml/min/1.73 sqM); Anion Gap 10 mmol/L; Blood Urea Nitrogen 31 mg/dL (9-20); C Reactive Protein 7.6 mg/L (<10.0); Calcium 9.1 mg/dL (8.4-10.2); Carbon Dioxide 19 mmol/L (22-30); Chloride 105 mmol/L (98-107); Glucose 138 mg/dL (74-99); Non-African American GFR(CKD) 78 (>60 ml/min/1.73 sqM); Potassium 4.8 mmol/L (3.5-5.1); Sodium 134 mmol/L (137-145)
[2020-06-05 14:57] LABS: Neutrophils % (M) 22 %; Nucleated Red Blood Cells 0 /100 WBC (0-0); Total Cells Counted 100
[2020-06-05 15:03] LABS: D-Dimer 0.21 mg/L FEU (<0.60); Prothrombin Time 19.2 sec (9.0-12.0)
--- NOTE | 2020-06-05 16:13 | PN ---
PROGRESS NOTE DATE OF SERVICE: 06/05/2020 This is an 79-year-old gentleman who was admitted with acute COVID-19 infection, also bilateral pneumonia, is being closely monitored. The patient also had atrial fibrillation with fast ventricular rate. Also, the patient is on bronchodilators and dexamethasone and other symptomatic treatment. The patient is also receiving warfarin also. The INR is 1.7 and sodium is 134. Possible ECF rehab is also considered. PAST MEDICAL HISTORY: Reviewed. REVIEW OF SYSTEMS: CARDIOVASCULAR SYSTEM: No angina. RESPIRATION: As mentioned earlier. GI: No nausea. : As mentioned earlier. NERVOUS SYSTEM: No numbness or weakness. CURRENT MEDICATIONS: Reviewed and include: 1. Tylenol. 2. [place]. 3. Ventolin. 4. Xanax. 5. Vitamin C. 6. Dulcolax. 7. Vitamin D3. 8. Medrol. 9. Pepcid. 10.Imdur. 11.Lopressor. 12.Zoloft. PHYSICAL EXAMINATION: Patient is alert and oriented x3. Pulse is 70, blood pressure 95/62, respirations 17, temperature 97.9, pulse ox 98% on room air. HEENT: Conjunctivae normal. NECK: No jugular venous distension. CARDIOVASCULAR SYSTEM: S1, S2 muffled. RESPIRATION: Breath sounds diminished at the bases, a few scattered rhonchi, no crackles. ABDOMEN: Soft, nontender. LEGS: No edema, no swelling. NERVOUS SYSTEM: Diffusely weak. LABS: WBC 20, hemoglobin 14.9, sodium is 134. ASSESSMENT: 1. Acute COVID-19 infection with possibly early bilateral interstitial pneumonia in the bases with COVID-19 pneumonia. 2. Atrial fibrillation with fast ventricular rate. 3. Paroxysmal atrial fibrillation. 4. Increased WBC. 5. Gait dysfunction. 6. Thrombocytopenia, mild. 7. Hyponatremia. 8. Increased random blood sugar. 9. Elevated CRP. 10.Anemia of chronic disease. 11.History of BPH. 12.History of leukemia. 13.History of depression. 14.History of dementia. 15.NO CODE, NO CPR, NO VENT. RECOMMENDATION: Recommend to continue with the current management and continue with Coumadin. Monitor PT, INR closely. Continue the exam and monitor blood sugars closely, otherwise PT, OT evaluation, possible ECF rehab versus home care. Further recommendations to follow. MMODL / IJN: [id number] /
[2020-06-05] MEDS ORDERED: WARFARIN 3 MG TAB PO ONE (18:00)
--- NOTE | 2020-06-05 22:19 | PN ---
PROGRESS NOTE DATE OF SERVICE: 06/05/2020 REASON FOR FOLLOWUP: COVID-19 infection. INTERVAL HISTORY: The patient is currently afebrile. The patient is breathing comfortably on room air. The patient denies having any chest pain or cough. No abdominal pain or any diarrhea. PHYSICAL EXAMINATION: Blood pressure is 102/56, pulse of 88, temperature 97.5. He is 93% on room air. General description is an elderly male up in the bed in no distress. RESPIRATORY SYSTEM: Unlabored breathing with decreased intensity of breath sounds. No wheeze. HEART: S1, S2. Irregular rhythm. ABDOMEN: Soft. No tenderness. EXTREMITIES: No edema of the feet. LABS: Hemoglobin is 14.9, white count 20,000. BUN 31, creatinine 0.92. DIAGNOSTIC IMPRESSION AND PLAN: 1. Patient admitted to hospital with increasing shortness of breath which is likely due to his atrial fibrillation with RVR plus/minus a component of COVID-19 in this patient who is maintaining his oxygen saturations without need for supplemental oxygen. The patient is currently on dexamethasone, Coumadin, zinc sulfate; to continue. 2. Elevated white count, more likely steroid effect. We will monitor closely. Repeat the x-ray and inflammatory markers tomorrow. Continue supportive care. MMODL / IJN: [id number] /
[2020-06-06] MEDS: ALBUTEROL HFA INHALER INHALATION SCH ×4 (06:48→19:32)
--- NOTE | 2020-06-06 07:35 | XR ---
EXAMINATION TYPE: XR chest 1V portable DATE OF EXAM: 06/06/2020 CLINICAL HISTORY: Difficulty breathing and covid pneumonia progress study. TECHNIQUE: Single AP portable upright view of the chest is obtained. COMPARISON: Chest x-ray from [address] chest 3 days ago. FINDINGS: There is scoliotic curvature redemonstrated. Advanced degenerative change right glenohumer al joint. Background chronic parenchymal changes without suspicious new focal airspace opacity, pleur al effusion, or pneumothorax seen bilaterally. Background cardiomegaly. Stable somewhat low lung volu mes. IMPRESSION: Chronic parenchymal changes and cardiomegaly without new acute pulmonary infiltrate. No s ignificant change from prior studies.
[2020-06-06] MEDS: CHOLECALCIFEROL 1,000 UNIT TAB PO SCH (09:09)
[2020-06-06] MEDS: METOPROLOL TARTRATE 50 MG TAB PO SCH ×2 (09:09→19:55)
[2020-06-06] MEDS: ZINC SULFATE 220 MG CAP PO SCH (09:10)
[2020-06-06] MEDS: FERROUS SULFATE 325 MG TAB PO SCH ×2 (09:10→19:55)
[2020-06-06] MEDS: hydrALAZINE HCL 10 MG TAB PO SCH ×3 (09:10→19:55)
[2020-06-06] MEDS: ASCORBIC ACID 500 MG TAB PO SCH ×2 (09:10→19:55)
[2020-06-06] MEDS: FAMOTIDINE 20 MG TAB PO SCH ×2 (09:10→19:55)
[2020-06-06] MEDS: SERTRALINE 50 MG TAB PO SCH (09:10)
[2020-06-06] MEDS: ISOSORBIDE MONONITRATE ER 30 MG TAB.ER.24H PO SCH (09:10)
[2020-06-06] MEDS: dexAMETHasone 2 MG TAB PO SCH (09:10)
[2020-06-06] MEDS: bisacodyL 10 MG SUPP RECTAL SCH (09:11)
[2020-06-06] MEDS: CLOTRIMAZOLE 1% CREAM 15 GM TUBE TOPICAL SCH ×2 (09:11→20:37)
[2020-06-06 09:13] LABS: Anisocytosis Slight; HCT 46.4 % (39.0-53.0); HGB 14.9 gm/dL (13.0-17.5); MCH 30.2 pg (25.0-35.0); MCV 94.1 fL (80.0-100.0); Mean Platelet Volume 7.2; Platelet Count 151 k/uL (150-450); RBC 4.93 m/uL (4.30-5.90); RDW 17.5 % (11.5-15.5); WBC 16.8 k/uL (3.8-10.6)
[2020-06-06 09:34] LABS: INR 2.4 (<1.2); Prothrombin Time 23.2 sec (9.0-12.0)
[2020-06-06 09:51] LABS: African American GFR (CKD) >90 (>60 ml/min/1.73 sqM); Anion Gap 8 mmol/L; Blood Urea Nitrogen 28 mg/dL (9-20); Carbon Dioxide 26 mmol/L (22-30); Chloride 103 mmol/L (98-107); Glucose 110 mg/dL (74-99); LDH 629 U/L (313-618); Non-African American GFR(CKD) 81 (>60 ml/min/1.73 sqM); Potassium 3.8 mmol/L (3.5-5.1); Sodium 137 mmol/L (137-145)
[2020-06-06 10:29] LABS: C Reactive Protein 5.3 mg/L (<10.0)
[2020-06-06 14:27] LABS: Band Neutrophils % 1 %; Lymphocytes # (M) 11.76 k/uL (1.0-4.8); Monocytes # (M) 0.84 k/uL (0-1.0); Neutrophils % (M) 24 %; Nucleated Red Blood Cells 0 /100 WBC (0-0); Total Cells Counted 100
[2020-06-06 14:34] LABS: Reactive Lymphocytes Present
[2020-06-06] MEDS ORDERED: WARFARIN 3 MG TAB PO ONE (18:00)
--- NOTE | 2020-06-06 23:19 | PN ---
PROGRESS NOTE DATE OF SERVICE: 06/06/2020. This 79-year-old gentleman who was admitted with COVID-19 infection with early bilateral interstitial pneumonia is being closely monitored at this time. The patient is also started on dexamethasone. Multiple consultants are following the patient closely. Dr. Guerrier is also following the patient. White count is elevated to 16.8. INR is 2.4. D-dimer was only 0.21. The most recent chest x-ray which was reviewed personally made by me showed some evidence of increased bronchovascular markings. A chest CT which was done 2 days ago which was reviewed personally by me showed without any suspicious acute pulmonary process. Infectious Disease following the patient closely as well. Past medical history reviewed. REVIEW OF SYSTEMS: Could not be taken, the patient is currently confused. CURRENT MEDICATIONS: Reviewed and include Tylenol, [place]. Ventolin. Xanax. Vitamin C, Dulcolax. Dexamethasone, Pepcid. Doses reviewed. PHYSICAL EXAM: Patient is alert, oriented x1. Pulse 86. Blood pressure 100/61, respiration 18, temperature 98 degrees, pulse ox 98% on room air. HEENT: Conjunctivae normal. NECK: No JVD. CARDIOVASCULAR: S1, S2 muffled. RESPIRATORY SYSTEM: Breath sounds diminished at the bases. A few scattered rhonchi and crackles. ABDOMEN: Soft. Nontender. Legs are no edema. No swelling. Symptoms. LAB STUDIES: WBC 16.8. Other labs are noted. ASSESSMENT: 1. Acute COVID-19 infection with possibly early bilateral interstitial pneumonia on the basis with COVID-19 pneumonia. 2. Atrial fibrillation with fast ventricular rate. 3. Paroxysmal atrial fibrillation. 4. Increased WBC. 5. Change in mental status, metabolic encephalopathy, acute on chronic. 6. Gait dysfunction. 7. Thrombocytopenia mild. 8. Hyponatremia. 9. Elevated random blood sugar. 10.Elevated CRP. 11.Anemia of chronic disease. 12.History of benign prostatic hypertrophy. 13.History of leukemia. 14.History of depression. 15.History of dementia. 16.NO CODE, NO CPR, NO VENT. RECOMMENDATIONS AND DISCUSSION: I recommend to continue current medications, management and symptomatic treatment. Continue with dexamethasone and Coumadin. Monitor the PT/INR closely. Otherwise currently no indication for Remdesivir per Infectious Disease. Prognosis guarded. Further recommendations to follow. MMODL / IJN: [id number] /
[2020-06-07] MEDS: ALBUTEROL HFA INHALER INHALATION SCH ×4 (01:42→19:24)
--- NOTE | 2020-06-07 04:43 | PN ---
PROGRESS NOTE DATE OF SERVICE: 06/06/2020 REASON FOR FOLLOWUP: Acute COVID-19 infection. INTERVAL HISTORY: Patient is currently afebrile. He is breathing comfortably on room air. Denies having any chest pain or cough. No nausea, no vomiting, no abdominal pain, no diarrhea. PHYSICAL EXAMINATION: Blood pressure 130/75 with pulse of 91, temperature 97.7. He is 95% on room air. General description is an elderly male lying in bed in no distress. Respiratory system: Unlabored breathing, decreased breath sounds at bases no wheeze. Heart S1, S2. Regular rate and rhythm. Abdomen is soft, no tenderness. LAB: Hemoglobin is 14.8, white count 16.9, BUN of 28, creatinine 0.88. Blood culture has been negative. IMPRESSION/PLAN: Patient with acute COVID-19 test positive in this patient currently with no hypoxemia or significant pneumonia. Patient is covered with dexamethasone, zinc and Coumadin. Droplet isolation. Continue supportive care. MMODL / IJN: [id number] /
[2020-06-07] MEDS: SERTRALINE 50 MG TAB PO SCH (08:46)
[2020-06-07] MEDS: dexAMETHasone 2 MG TAB PO SCH (08:46)
[2020-06-07] MEDS: ASCORBIC ACID 500 MG TAB PO SCH ×2 (08:46→20:39)
[2020-06-07] MEDS: CHOLECALCIFEROL 1,000 UNIT TAB PO SCH (08:46)
[2020-06-07] MEDS: bisacodyL 10 MG SUPP RECTAL SCH (08:46)
[2020-06-07] MEDS: ZINC SULFATE 220 MG CAP PO SCH (08:46)
[2020-06-07] MEDS: hydrALAZINE HCL 10 MG TAB PO SCH ×2 (08:46→20:39)
[2020-06-07] MEDS: METOPROLOL TARTRATE 50 MG TAB PO SCH ×2 (08:46→20:39)
[2020-06-07] MEDS: FAMOTIDINE 20 MG TAB PO SCH ×2 (08:46→20:39)
[2020-06-07] MEDS: FERROUS SULFATE 325 MG TAB PO SCH ×2 (08:46→20:39)
[2020-06-07] MEDS: CLOTRIMAZOLE 1% CREAM 15 GM TUBE TOPICAL SCH ×2 (08:48→21:50)
[2020-06-07] MEDS: ISOSORBIDE MONONITRATE ER 30 MG TAB.ER.24H PO SCH (09:41)
[2020-06-07 10:03] LABS: INR 2.4 (0.90-1.11); Prothrombin Time 24.3 sec (9.9-11.9)
[2020-06-07] MEDS ORDERED: WARFARIN 3 MG TAB PO ONE (18:00)
--- NOTE | 2020-06-07 18:02 | PN ---
PROGRESS NOTE DATE OF SERVICE: 06/07/2020 This 79-year-old gentleman who was admitted with acute COVID-19 infection with possible bilateral interstitial pneumonia is being closely monitored. The patient also has atrial fibrillation with a fast ventricular rate also. The patient is also being followed by Dr. Guerrier. Conservative line of treatment also been being recommended. INR is 2.4 at this time. Past medical history reviewed. REVIEW OF SYSTEMS: Could not be taken, the patient is confused. CURRENT MEDICATIONS: Reviewed and include: Tylenol, [place], Ventolin, Xanax, Dulcolax, dexamethasone, Pepcid, Apresoline, Zoloft. Coumadin, oral zinc. PHYSICAL EXAM: Patient is alert, oriented x2. Pulse is 83, blood pressure 106/60, respiration 18, temperature 97.4, pulse ox 94% on 6 L. HEENT: Conjunctivae normal. NECK: No JVD. CARDIOVASCULAR: S1, S2 muffled. Respirations: Breath sounds diminished in the bases. A few scattered rhonchi and crackles. ABDOMEN: Soft, nontender. LEGS are no edema. No swelling. NERVOUS SYSTEM: No focal deficits. LABS: WBC 16.8, hemoglobin 14.9, INR 2.4. LDH is 629. ASSESSMENT: 1. Acute Covid-19 infection with possible early interstitial pneumonia on the basis of COVID-19 pneumonia. 2. Atrial fibrillation with fast ventricular rate. 3. Paroxysmal atrial fibrillation. 4. Increased WBC. 5. Change in mental status, acute metabolic encephalopathy, acute on chronic. 6. Gait dysfunction. 7. Mild thrombocytopenia. 8. Hyponatremia. 9. Elevated random blood sugar. 10.Elevated CRP. 11.Anemia of chronic disease. 12.Benign prostatic hypertrophy. 13.History of leukemia. 14.History of depression. 15.History of dementia. 16.NO CODE, NO CPR, NO VENT. RECOMMENDATIONS AND DISCUSSION: I recommend to continue current medications, monitoring, management and symptomatic treatment. Otherwise, at this time, continue the steroids. Monitor blood sugars closely. Monitor INR closely. Repeat labs tomorrow. PT/OT evaluation. Further recommendations to follow. MMODL / IJN: [id number] /
[2020-06-08] MEDS: ALBUTEROL HFA INHALER INHALATION SCH ×4 (02:16→19:34)
--- NOTE | 2020-06-08 04:37 | PN ---
PROGRESS NOTE DATE OF SERVICE: 06/07/2020 REASON FOR FOLLOWUP: Positive COVID test. INTERVAL HISTORY: Patient is currently afebrile. The patient is breathing comfortably. Denies having any chest pain or cough. No abdominal pain or diarrhea. PHYSICAL EXAMINATION: Blood pressure 119/64, pulse of 72, temperature 97.7. He is 95% on room air. General description is an elderly male lying in bed in no distress. Respiratory system: Unlabored breathing, decreased breath sounds in the base, no wheeze. Heart S1, S2. Regular rate and rhythm. Abdomen soft, no tenderness. LABS: Hemoglobin 14.1, white count 15.8, INR is 2.40, BUN of 28, creatinine 0.88. DIAGNOSTIC IMPRESSION AND PLAN: Patient with a positive COVID test and this patient does not have any hypoxemia and CRP is normal. Clinically doubt the patient to have active COVID infection and his symptoms are more likely related to his atrial fibrillation with rapid ventricular rate being treated by his Cardiology team. Continue with current protocol and monitor clinical course closely. Continue supportive care. ROWENA / ALYX: [id number] /
[2020-06-08 06:52] LABS: Anisocytosis Slight; HGB 15.1 gm/dL (13.0-17.5); MCH 30.9 pg (25.0-35.0); MCHC 33.4 g/dL (31.0-37.0); MCV 92.5 fL (80.0-100.0); Mean Platelet Volume 7.3; Platelet Count 125 k/uL (150-450); RBC 4.87 m/uL (4.30-5.90); RDW 16.8 % (11.5-15.5)
[2020-06-08] MEDS: hydrALAZINE HCL 10 MG TAB PO SCH ×2 (08:35→20:11)
[2020-06-08] MEDS: FAMOTIDINE 20 MG TAB PO SCH ×2 (08:35→20:11)
[2020-06-08] MEDS: dexAMETHasone 2 MG TAB PO SCH (08:35)
[2020-06-08] MEDS: SERTRALINE 50 MG TAB PO SCH (08:35)
[2020-06-08] MEDS: ISOSORBIDE MONONITRATE ER 30 MG TAB.ER.24H PO SCH (08:36)
[2020-06-08] MEDS: FERROUS SULFATE 325 MG TAB PO SCH ×2 (08:36→20:11)
[2020-06-08] MEDS: ASCORBIC ACID 500 MG TAB PO SCH ×2 (08:36→20:11)
[2020-06-08] MEDS: METOPROLOL TARTRATE 50 MG TAB PO SCH ×2 (08:36→20:11)
[2020-06-08] MEDS: CLOTRIMAZOLE 1% CREAM 15 GM TUBE TOPICAL SCH ×2 (08:36→20:11)
[2020-06-08] MEDS: ZINC SULFATE 220 MG CAP PO SCH (08:36)
[2020-06-08] MEDS: bisacodyL 10 MG SUPP RECTAL SCH (08:36)
[2020-06-08] MEDS: CHOLECALCIFEROL 1,000 UNIT TAB PO SCH (08:36)
[2020-06-08 09:25] LABS: INR 2.71 (0.90-1.11); Prothrombin Time 27.2 sec (9.9-11.9)
[2020-06-08 09:53] LABS: African American GFR (CKD) 93.2 (60.0-200.0); Anion Gap 6.4 mmol/L (4.00-12.00); BUN/Creat Ratio 26.67 Ratio (12.00-20.00); Calcium 9.2 mg/dL (8.7-10.3); Carbon Dioxide 28.6 mmol/L (21.6-31.8); Non-African American GFR(CKD) 80.4 (60.0-200.0); Potassium 4.1 mmol/L (3.5-5.5)
[2020-06-08 12:59] LABS: Neutrophils % (M) 16 %; Nucleated Red Blood Cells 0 /100 WBC (0-0); Total Cells Counted 200
[2020-06-08 13:00] LABS: Poikilocytosis (M) Present
[2020-06-08] MEDS ORDERED: WARFARIN 3 MG TAB PO ONE (18:00)
--- NOTE | 2020-06-08 18:12 | PN ---
PROGRESS NOTE DATE OF SERVICE: 06/08/2020 INTERVAL HISTORY: This is an 79-year-old gentleman who was admitted with acute COVID-19 infection with possibly early interstitial pneumonia. He is being closely monitored at this time. Case Management and Social Work are working towards obtaining a COVID-19 facility which accept COVID-19 patients. No chest pain, no palpitation. PHYSICAL EXAMINATION: GENERAL: The patient is conscious, confused. VITAL SIGNS: Pulse 80, blood pressure 94/57, respirations 16, temperature 98.2, pulse ox 94% on room air. HEENT: Conjunctivae are normal. NECK: No jugular venous distention. CARDIOVASCULAR: S1 and S2 muffled. LUNGS: Breath sounds diminished in the bases, a few scattered rhonchi. ABDOMEN: Soft. NERVOUS SYSTEM: No focal deficits. LABS: WBC 20. INR is 2.7. Other labs are noted. ASSESSMENT: 1. Acute COVID-19 infection with possible early interstitial pneumonia on the basis of COVID-19 pneumonia. 2. Atrial fibrillation with fast ventricular rate, present on admission. 3. Paroxysmal atrial fibrillation. 4. Increased WBC. 5. Change in mental status, acute on chronic metabolic encephalopathy. 6. Gait dysfunction. 7. Mild thrombocytopenia. 8. Hyponatremia. 9. Elevated random glucose. 10.Elevated CRP. 11.Anemia of chronic disease. 12.Benign prostatic hypertrophy. 13.History of leukemia. 14.History of depression. 15.History of dementia. 16.NO CODE, NO CPR, NO VENT. RECOMMENDATIONS AND DISCUSSION: I recommend to continue current medication, continue to monitor. Symptomatic treatment. Otherwise at this time I recommend continue with current medication. Closely follow with Infectious Disease, case management team. Otherwise, possible discharge to discharge to facility who will accept COVID-19 patients when available. MMODL / IJN: [id number] /
--- NOTE | 2020-06-09 00:19 | PN ---
PROGRESS NOTE DATE OF SERVICE: 06/08/2020 REASON FOR FOLLOWUP: Positive COVID test. INTERVAL HISTORY: The patient is currently afebrile. The patient has been breathing comfortably, currently on room air. Denies having any chest pain or cough. No nausea, no vomiting. No abdominal pain or diarrhea. PHYSICAL EXAMINATION: Blood pressure 126/69 with pulse of 91, temperature 98.4. He is 95% on room air. General description is an elderly male lying in bed in no distress. RESPIRATORY SYSTEM: Unlabored breathing, decreased intensity of breath sounds. No wheeze. HEART: S1, S2. Regular rate and rhythm. ABDOMEN: Soft, no tenderness. LABS: Hemoglobin 15.1, white count 20,000. BUN of 24, creatinine 0.9. Blood culture has been negative. DIAGNOSTIC IMPRESSION AND PLAN: 1. Patient with a positive COVID test in this patient who presented to the hospital with atrial fibrillation with rapid ventricular response, more likely responsible for this patient's symptoms. Chest x-ray has been negative for any acute findings and the patient is saturating 95% to 96% on room air. Patient to continue with the dexamethasone, zinc and Coumadin along with respiratory support. 2. Elevated white count, more likely steroid related as no evidence of any worsening infection. MMODL / IJN: [id number] /
[2020-06-09] MEDS: ALBUTEROL HFA INHALER INHALATION SCH ×4 (03:32→20:51)
[2020-06-09 07:07] LABS: INR 3.3 (<1.2); Prothrombin Time 32.8 sec (9.0-12.0)
[2020-06-09 07:13] LABS: Glucose,Whole Blood 75 mg/dL (75-99)
[2020-06-09 07:38] LABS: Anisocytosis Slight; Basophils # (A) 0.1 k/uL (0-0.2); Basophils % (A) 0 %; Eosinophils # (A) 0.1 k/uL (0-0.7); Eosinophils % (A) 1 %; HCT 49.1 % (39.0-53.0); HGB 15.9 gm/dL (13.0-17.5); Lymphocytes % (A) 69 %; MCH 30.3 pg (25.0-35.0); MCHC 32.4 g/dL (31.0-37.0); MCV 93.6 fL (80.0-100.0); Mean Platelet Volume 7.8; Monocytes # (A) 0.8 k/uL (0-1.0); Monocytes % (A) 3 %; Neutrophils # (A) 6.2 k/uL (1.3-7.7); Platelet Count 148 k/uL (150-450); RBC 5.24 m/uL (4.30-5.90); RDW 17.2 % (11.5-15.5); WBC 24.9 k/uL (3.8-10.6)
[2020-06-09 07:39] LABS: Lymphocytes # (A) 17.2 k/uL (1.0-4.8)
[2020-06-09 08:05] LABS: Poikilocytosis (M) Present
[2020-06-09] MEDS: hydrALAZINE HCL 10 MG TAB PO SCH ×2 (09:54→20:02)
[2020-06-09] MEDS: ZINC SULFATE 220 MG CAP PO SCH (09:54)
[2020-06-09] MEDS: dexAMETHasone 2 MG TAB PO SCH (09:54)
[2020-06-09] MEDS: METOPROLOL TARTRATE 50 MG TAB PO SCH ×2 (09:54→20:02)
[2020-06-09] MEDS: FERROUS SULFATE 325 MG TAB PO SCH ×2 (09:54→20:01)
[2020-06-09] MEDS: SERTRALINE 50 MG TAB PO SCH (09:54)
[2020-06-09] MEDS: ISOSORBIDE MONONITRATE ER 30 MG TAB.ER.24H PO SCH (09:54)
[2020-06-09] MEDS: CLOTRIMAZOLE 1% CREAM 15 GM TUBE TOPICAL SCH ×2 (09:55→20:03)
[2020-06-09] MEDS: FAMOTIDINE 20 MG TAB PO SCH ×2 (09:55→20:02)
[2020-06-09] MEDS: CHOLECALCIFEROL 1,000 UNIT TAB PO SCH (09:55)
[2020-06-09] MEDS: ASCORBIC ACID 500 MG TAB PO SCH ×2 (09:55→20:02)
[2020-06-09] MEDS: bisacodyL 10 MG SUPP RECTAL SCH (09:55)
[2020-06-09 10:15] LABS: African American GFR (CKD) 97.8 (60.0-200.0); Anion Gap 6.1 mmol/L (4.00-12.00); BUN/Creat Ratio 31.25 Ratio (12.00-20.00); Calcium 9.2 mg/dL (8.7-10.3); Carbon Dioxide 28.9 mmol/L (21.6-31.8); Non-African American GFR(CKD) 84.4 (60.0-200.0); Potassium 4.4 mmol/L (3.5-5.5)
[2020-06-09 11:42] VITALS: BMI 29.2
--- NOTE | 2020-06-09 15:35 | P.PN ---
Subjective Progress Note Date: 06/09/20 HISTORY OF PRESENT ILLNESS This is an 79-year-old male patient who has been under treatment for Covid infe ction as well as presented with A. fib with RVR. His respiratory status has been stable and not requiring oxygen therapy. Patient states that he is feeling well. He is also eating well. He denies any cough or shortness of breath. No chest pain. No nausea. Repeat blood work reveals WBC 24.9. No lymphopenia. INR 3.3. Electrolytes renal function normal. Covid 19 is positive. PHYSICAL EXAMINATION Gen: This is an 79-year-old male. No respiratory distress noted. Patient appears to be comfortable. VS: Afebrile, heart rate 67, blood pressure 152/91, pulse ox 98% on room air. HEENT: Head is atraumatic, normocephalic. Pupils equal, round. Sclerae is anicteric. NECK: Supple. No JVD. No lymphadenopathy. No thyromegaly. LUNGS: Clear to auscultation. No wheezes or rhonchi. No intercostal retractions. HEART: Regular rate and rhythm. No murmur. ABDOMEN: Soft. Bowel sounds are present. No masses. No tenderness. EXTREMITIES: No pedal edema. No calf tenderness. NEUROLOGICAL: Patient is awake, alert and oriented x3. Cranial nerves 2 through 12 are grossly intact. ASSESSMENT Positive Covid test without signs of pneumonia A. fib with RVR No hypoxemia Leukocytosis secondary to steroids PLAN Continue dexamethasone, vitamin C, vitamin D, zinc Continue Coumadin and treatment for A. fib No plan for Remdesivir, no antibiotics necessary Patient is cleared from infectious disease for discharge. The above dictated assessment and findings were discussed with Dr. Guerrier. The impression and plan of care have been directed as dictated. Kim Soto nurse practitioner acting as scribe for Dr. Guerrier. Objective - Vital Signs Vital signs: Vital Signs Temp 98.6 F 06/09/20 14:00 Pulse 82 06/09/20 14:00 Resp 17 06/09/20 14:00 BP 111/68 06/09/20 14:00 Pulse Ox 94 L 06/09/20 14:00 Intake & Output 06/08/20 06/09/20 06/09/20 18:59 06:59 18:59 Intake Total 800 700 Output Total 227 2 Balance 800 473 -2 Weight 89.9 kg Intake: Oral 800 700 Output: Urine 225 Stool 2 2 Other: Voiding Method Diaper Diaper Diaper Incontinent Incontinent Incontinent # Voids 2 - Labs CBC & Chem 7: 06/09/20 06:05 06/09/20 06:05 Labs: Abnormal Lab Results - Last 24 Hours (Table) 06/09/20 06/09/20 06/09/20 Range/Units 06:05 06:05 06:05 WBC 24.9 H (3.8-10.6) k/uL RDW 17.2 H (11.5-15.5) % Plt Count 148 L (150-450) k/uL Lymphocytes # 17.2 H (1.0-4.8) k/uL PT 32.8 H (9.0-12.0) sec INR 3.3 H (<1.2) BUN/Creatinine Ratio 31.25 H (12.00-20.00) Ratio Coronavirus (PCR) (Not Detectd) 06/09/20 Range/Units 13:25 WBC (3.8-10.6) k/uL RDW (11.5-15.5) % Plt Count (150-450) k/uL Lymphocytes # (1.0-4.8) k/uL PT (9.0-12.0) sec INR (<1.2) BUN/Creatinine Ratio (12.00-20.00) Ratio Coronavirus (PCR) Detected A (Not Detectd) Microbiology - Last 24 Hours (Table) 06/02/20 18:06 Blood Culture - Final Blood No Growth after 144 hours
[2020-06-09] MEDS ORDERED: WARFARIN 0.5 MG TAB PO ONE (18:00)
--- NOTE | 2020-06-09 19:01 | PN ---
PROGRESS NOTE DATE OF SERVICE: 06/09/2020 This 79-year-old gentleman who was admitted with acute COVID-19 infection with possible early interstitial pneumonia on the basis of Covid-19 is being closely monitored. No chest pain. No palpitations. Patient is ready for discharge. The social insurance adviser team is looking for a facility who will accept Covid-19 positive patient's. No chest pain. No palpitations. PHYSICAL EXAMINATION: Patient is conscious, confused. Pulse 82, blood pressure 111/60, respirations 17, temperature 98.2, pulse ox 98% on room air. HEENT: Conjunctivae normal. Neck: No JVD. CARDIOVASCULAR: S1, S2 muffled. RESPIRATION: Breath sounds diminished in the bases. No rhonchi. No crackles. ABDOMEN: Soft, nontender. LEGS: No edema. No swelling. Nervous system: No focal deficits. LABS: Reviewed. ASSESSMENT: 1. Acute COVID-19 infection with possible early interstitial pneumonia on the basis of Covid-19 pneumonia. 2. Atrial fibrillation with fast ventricular rate, present on admission. 3. Paroxysmal atrial fibrillation. 4. Increased WBC possibly secondary to steroids. 5. Change in mental status, acute on chronic metabolic encephalopathy. 6. Gait dysfunction. 7. Mild thrombocytopenia. 8. Hyponatremia. 9. Elevated random glucose. 10.Elevated CRP. 11.Anemia of chronic disease. 12.History of prostate hypertrophy. 13.History of leukemia. 14.History of depression. 15.History of dementia. 16.NO CODE, NO CPR, NO VENT. RECOMMENDATIONS AND DISCUSSION: Continue to monitor. Symptomatic treatment. Otherwise at this time I recommend continue with current medications. Covid treatment and closely follow with Dr. Guerrier. Guarded prognosis. Further recommendations to follow. MMODL / IJN: [id number] /
[2020-06-10] MEDS: ALBUTEROL HFA INHALER INHALATION SCH ×3 (00:12→11:49)
[2020-06-10 06:55] LABS: Anisocytosis Slight; Basophils # (A) 0.1 k/uL (0-0.2); Basophils % (A) 1 %; Eosinophils # (A) 0.1 k/uL (0-0.7); Eosinophils % (A) 1 %; HCT 47.6 % (39.0-53.0); HGB 16.2 gm/dL (13.0-17.5); Lymphocytes % (A) 66 %; MCH 31.7 pg (25.0-35.0); MCV 93.3 fL (80.0-100.0); Mean Platelet Volume 8.2; Monocytes # (A) 1.2 k/uL (0-1.0); Monocytes % (A) 5 %; Neutrophils # (A) 6.7 k/uL (1.3-7.7); Neutrophils % (A) 27 %; Platelet Count 159 k/uL (150-450); RDW 16.8 % (11.5-15.5); WBC 25.1 k/uL (3.8-10.6)
[2020-06-10 07:04] LABS: Lymphocytes # (A) 16.4 k/uL (1.0-4.8)
[2020-06-10] MEDS: METOPROLOL TARTRATE 50 MG TAB PO SCH (09:19)
[2020-06-10] MEDS: CHOLECALCIFEROL 1,000 UNIT TAB PO SCH (09:19)
[2020-06-10] MEDS: SERTRALINE 50 MG TAB PO SCH (09:20)
[2020-06-10] MEDS: FERROUS SULFATE 325 MG TAB PO SCH (09:20)
[2020-06-10] MEDS: FAMOTIDINE 20 MG TAB PO SCH (09:20)
[2020-06-10] MEDS: dexAMETHasone 2 MG TAB PO SCH (09:20)
[2020-06-10] MEDS: ISOSORBIDE MONONITRATE ER 30 MG TAB.ER.24H PO SCH (09:20)
[2020-06-10] MEDS: hydrALAZINE HCL 10 MG TAB PO SCH (09:20)
[2020-06-10] MEDS: ZINC SULFATE 220 MG CAP PO SCH (09:20)
[2020-06-10] MEDS: ASCORBIC ACID 500 MG TAB PO SCH (09:20)
[2020-06-10] MEDS: CLOTRIMAZOLE 1% CREAM 15 GM TUBE TOPICAL SCH (09:21)
[2020-06-10] MEDS: bisacodyL 10 MG SUPP RECTAL SCH (09:21)
[2020-06-10 10:49] LABS: INR 2.35 (0.90-1.11); Prothrombin Time 23.8 sec (9.9-11.9)
[2020-06-10 11:04] LABS: Anion Gap 7.4 mmol/L (4.00-12.00); Calcium 9.2 mg/dL (8.7-10.3); Carbon Dioxide 26.6 mmol/L (21.6-31.8); Non-African American GFR(CKD) 70.8 (60.0-200.0); Potassium 4.5 mmol/L (3.5-5.5)
--- NOTE | 2020-06-10 13:14 | P.DS ---
Providers Date of admission: 06/02/20 18:35 Expected date of discharge: 06/10/20 Attending physician: Brant Lamar MD Consults: 06/03/20 14:03 Consult Physician Routine Consulting Provider: Lucy Guerrier Consult Reason/Comments: covid Do you want consulting provider notified?: Yes Primary care physician: Terrence Baldwin [facility] Course: Final diagnosis Acute Covid 19 infection with possible early interstitial pneumonia on the basis of Covid 19 pneumonia Atrial fibrillation with fast ventricular rate, present on admission Paroxysmal atrial fibrillation Increased WBC possibly secondary to steroids Change in mental status, acute on chronic metabolic encephalopathy Gait dysfunction Mild thrombocytopenia Hyponatremia Elevated random glucose Elevated CRP Anemia of chronic disease History of prostate hypertrophy History of leukemia History of depression History of dementia No code, no CPR, no vent Discharge disposition Patient is being discharged in a stable condition with guarded prognosis to [facility] as he is a resident there. Patient will follow-up with Dr. Baldwin in the outpatient setting upon discharge. Patient is to continue with dexamethasone 6 mg daily for the next 2 days to complete the course and then may discontinue. Patient is to continue to quarantine per protocol. Total time taken is greater than 35 minutes. History of present illness This is an 79-year-old male who was recently admitted with acute covid 19 infection with possible early interstitial pneumonia and is being closely monitored. Social work had been following working on placement to facilities that would accept Covid-positive patients. Daughter had also been working with pre-existing [facility] home and patient has been accepted at [facility] in [place] and will be going there today. Patient was started on dexamethasone along with zinc supplements and will continue with dexamethasone 6 mg daily for the next 2 days to complete the course and then may discontinue. Patient is to continue to quarantine per protocol of the facility. Repeat Covid 19 testing yesterday was positive. Patient is currently maintaining oxygen saturation on room air and no reports of worsening shortness of breath. Currently no reports of chest pain, shortness of breath, or palpitations. Patient is afebrile. No reports of nausea or vomiting and patient is tolerating diet. Patient will be going to [facility] today. On exam vital signs are stable. Temp is 97.8F, pulse is 66, respirations are 18, blood pressure is 125/89, oxygen saturation is 97% on room air. Cardio S1, S2 are muffled. Respiratory system shows diminished breath sounds at the bases with no wheezing or rhonchi noted. Abdomen is soft and and nontender. Nervous system shows diffuse weakness. Please refer to medication reconciliation sheet for a list of medications. Patient Condition at Discharge: Stable Plan - Discharge Summary Discharge Rx Participant: No New Discharge Prescriptions: New hydrALAZINE HCL [Apresoline] 20 mg PO BID 30 Days #120 tab dexAMETHasone [Hexadrol] 6 mg PO DAILY 2 Days #6 tab Isosorbide Mononitrate ER [Imdur] 30 mg PO DAILY 30 Days #30 tab.er.24h Metoprolol Tartrate [Lopressor] 100 mg PO BID@ 30 Days #120 tab Zinc Sulfate [Orazinc] 220 mg PO DAILY 30 Days #30 cap Acetaminophen Tab [Tylenol] 1,000 mg PO Q6HR PRN tab PRN Reason: Fever>101 Albuterol Inhaler [Ventolin Hfa Inhaler] 2 puff INHALATION RT-Q6H 30 Days #1 puff Albuterol Inhaler [Ventolin Hfa Inhaler] 2 puff INHALATION RT-Q6H PRN puff PRN Reason: Shortness Of Breath Or Wheezing Ascorbic Acid [Vitamin C] 500 mg PO BID 30 Days #60 tab Cholecalciferol [Vitamin D3 (25 Mcg = 1000 Iu)] 5,000 unit PO DAILY 30 Days #30 tab Continue bisacodyL [Bisacodyl] 10 mg RECTAL DAILY Maurice Antifungal Cream 2% 1 applic TOPICAL BID Acetaminophen 650 mg RECTAL Q4H PRN PRN Reason: Fever And/ Or Pain Warfarin Sodium 4 mg PO SUTUTH@1999 Warfarin Sodium 3 mg PO MOWEFRSA@1999 Sertraline HCl [Zoloft] 50 mg PO DAILY@0800 Omeprazole 20 mg PO DAILY@799 Ferrous Sulfate [Iron] 325 mg PO BID@ Discontinued Metoprolol Tartrate [Lopressor] 50 mg PO BID@ Discharge Medication List Acetaminophen 650 mg RECTAL Q4H PRN 06/02/20 [History] Maurice Antifungal Cream 2% 1 applic TOPICAL BID 06/02/20 [History] Ferrous Sulfate [Iron] 325 mg PO BID@06/02/20 [History] Omeprazole 20 mg PO DAILY@0806/02/20 [History] Sertraline HCl [Zoloft] 50 mg PO DAILY@0806/02/20 [History] Warfarin Sodium 3 mg PO MOWEFRSA@199906/02/20 [History] Warfarin Sodium 4 mg PO SUTUTH@199906/02/20 [History] bisacodyL [Bisacodyl] 10 mg RECTAL DAILY 06/02/20 [History] Acetaminophen Tab [Tylenol] 1,000 mg PO Q6HR PRN tab 06/10/20 [Rx] Albuterol Inhaler [Ventolin Hfa Inhaler] 2 puff INHALATION RT-Q6H 30 Days #1 puff 06/10/20 [Rx] Albuterol Inhaler [Ventolin Hfa Inhaler] 2 puff INHALATION RT-Q6H PRN puff 06/10/20 [Rx] Ascorbic Acid [Vitamin C] 500 mg PO BID 30 Days #60 tab 06/10/20 [Rx] Cholecalciferol [Vitamin D3 (25 Mcg = 1000 Iu)] 5,000 unit PO DAILY 30 Days #30 tab 06/10/20 [Rx] Isosorbide Mononitrate ER [Imdur] 30 mg PO DAILY 30 Days #30 tab.er.24h 06/10/20 [Rx] Metoprolol Tartrate [Lopressor] 100 mg PO BID@799,1999 30 Days #120 tab 06/10/20 [Rx] Zinc Sulfate [Orazinc] 220 mg PO DAILY 30 Days #30 cap 06/10/20 [Rx] dexAMETHasone [Hexadrol] 6 mg PO DAILY 2 Days #6 tab 06/10/20 [Rx] hydrALAZINE HCL [Apresoline] 20 mg PO BID 30 Days #120 tab 06/10/20 [Rx] Follow up Appointment(s)/Referral(s): Terrence Baldwin DO [Primary Care Provider] - 1-2 days Ambulatory/Diagnostic Orders: Basic Metabolic Panel [LAB.AMB] Time Frame: 2 Days, Location: None Selected Complete Blood Count w/diff [LAB.AMB] Time Frame: 2 Days, Location: None Selected Prothrombin Time INR [LAB.AMB] Time Frame: 2 Days, Location: None Selected Activity/Diet/Wound Care/Special Instructions: Patient is going to [facility] assisted living Activity as tolerated Continue with dexamethasone for the next 2 days to complete this course Continue to quarantine Repeat labs in 2-3 days Discharge Disposition: TRANSFER TO SNF/ECF
[2020-06-10 15:23] VITALS: BP 115/71; PULSE 85; RESP 17; TEMP 98.2
--- NOTE | 2020-06-10 16:22 | PN ---
PROGRESS NOTE DATE OF SERVICE: 06/10/2020 REASON FOR FOLLOWUP: COVID-19 infection. INTERVAL HISTORY: The patient is currently afebrile, the patient is breathing comfortably. The patient denies having any chest pain or shortness of breath, no cough. No abdominal pain or diarrhea. PHYSICAL EXAMINATION: Blood pressure 125/89, pulse of 68, temperature 97.8. He is 97% on room air. General description is an elderly male, up in the bed in no distress. RESPIRATORY SYSTEM: Unlabored breathing. EXTREMITIES: No edema of the feet. LABS: Hemoglobin 16, white count 5.1, creatinine 2.35. DIAGNOSTIC IMPRESSION AND PLAN: Patient with a positive COVID testing in this patient who did not have significant respiratory symptoms and has maintained his O2 saturations with no need for supplemental oxygen. The patient was treated with dexamethasone, Coumadin and zinc. May consider a course on discharge and continue his Coumadin. Continue supportive care. MMODL / IJN: [id number] /
[2020-06-10] MEDS ORDERED: WARFARIN 3 MG TAB PO ONE (18:00)
== END 2020-06-10 15:41 | disposition home or self-care (01) | DRG 177 ==
LOC: EC 17:33 → 3SCARD 18:35 → 4SSUR 06-06 20:54
PROVIDERS: ADMIT Internal Medicine; ATTEND Internal Medicine
DX: U07.1 COVID-19 (principal); J12.89 Other viral pneumonia; G93.41 Metabolic encephalopathy; E87.1 Hypo-osmolality and hyponatremia; J90 Pleural effusion, not elsewhere classified; J98.11 Atelectasis; I42.9 Cardiomyopathy, unspecified; J84.9 Interstitial pulmonary disease, unspecified; I47.1 Supraventricular tachycardia; I48.0 Paroxysmal atrial fibrillation; F03.90 Unspecified dementia, unspecified severity, without behavioral disturbance, psychotic disturbance, mood disturbance, and anxiety; D69.6 Thrombocytopenia, unspecified; I27.20 Pulmonary hypertension, unspecified; T38.0X5A Adverse effect of glucocorticoids and synthetic analogues, initial encounter; I08.3 Combined rheumatic disorders of mitral, aortic and tricuspid valves; R79.82 Elevated C-reactive protein (CRP); E87.70 Fluid overload, unspecified; Z66 Do not resuscitate; D63.8 Anemia in other chronic diseases classified elsewhere; N40.0 Benign prostatic hyperplasia without lower urinary tract symptoms; R26.9 Unspecified abnormalities of gait and mobility; F32.9 Major depressive disorder, single episode, unspecified; Z79.899 Other long term (current) drug therapy; Z79.01 Long term (current) use of anticoagulants; Z85.6 Personal history of leukemia
CPT/HCPCS: 36415; 71045; 71250; 80048; 80053; 82728; 83605; 83615; 83735; 83880; 84145; 85025; 85379; 85610; 85730; 86140; 87040; 87635; 93005; 93306; 94640; 96365; 96366; 99285